=== PATIENT | female | born 1950 | race Caucasian/White ===

== ENCOUNTER 2024-09-24 11:05 | Inpatient (IN) | payer MEDICARE, OTHER ==
[~2024-09-24] VITALS: Ht 157.5 cm; Wt 64.4 kg
[~2024-09-24 11:05] MED LIST: BACI3.5O23 EACHEYE; BALS60OI TP; BISA-79 PO; DEXT1DRO3 OP; ENOX40DI SQ; FURO-145 PO; GLYC-22 RC; LINA145C PO; METH10TA2 PO; MORP100T24 PO; MORP30TA59 PO; POTA20TA83 PO; SENN-18 PO; SIMV10TA2 PO
[2024-09-24 11:57] LABS: BASOPHILS % (AUTO) 0.2 % (0.0-2.0); EOSINOPHILS # (AUTO) 1.9 K/uL (0.0-0.7); HEMATOCRIT 41 % (33-45); LYMPHOCYTES # (AUTO) 1.5 K/uL (0.8-4.8); LYMPHOCYTES % (AUTO) 22.4 % (20.0-44.0); MEAN CORPUSCULAR HEMOGLOBIN 31 PG (26.0-33.0); MEAN CORPUSCULAR HGB CONC 34 g/dl (31.0-36.0); MEAN CORPUSCULAR VOLUME 92 fL (82-100); MONOCYTES # (AUTO) 0.6 K/uL (0.1-1.30); MONOCYTES % (AUTO) 8.7 % (2.0-12.0); NEUTROPHILS # (AUTO) 2.5 K/uL (1.8-8.9); NEUTROPHILS % (AUTO) 38.9 % (43.0-81.0); PLATELET COUNT (AUTO) 246 K/uL (150-450); RED BLOOD CELL COUNT(AUTO) 4.49 MIL/uL (4.0-5.2); WHITE BLOOD COUNT (AUTO) 6.5 K/uL (4.3-11.0)
[2024-09-24 11:58] LABS: EOSINOPHILS % (AUTO) 29.8 % (0.0-6.0)
[2024-09-24 12:01] LABS: CALCIUM, SERUM 8.7 mg/dL (8.5-10.1); CARBON DIOXIDE 25 mmol/L (21-32); CHLORIDE 105 mmol/L (98-107); CREATININE 0.8 mg/dL (0.6-1.3); GLUCOSE 99 mg/dL (74-106); POTASSIUM 4.4 mmol/L (3.5-5.1); SODIUM SERUM 137 mmol/L (136-145); UREA NITROGEN, BLOOD 22 mg/dL (7-18)
[2024-09-24] MEDS ORDERED: PRAM0.258 PO (12:05)
[2024-09-24] MEDS ORDERED: MAGN400O6 PO (12:05)
[2024-09-24] MEDS ORDERED: ACET325T53 PO (12:05)
[2024-09-24] MEDS ORDERED: OXCA150T13 PO (12:05)
[2024-09-24] MEDS ORDERED: ACET-73 PO (12:05)
[2024-09-24] MEDS ORDERED: TRIA80CR12 TP (12:05)
[2024-09-24] MEDS ORDERED: NA P133E RC (12:05)
[2024-09-24] MEDS ORDERED: MORP15TA7 PO (12:05)
[2024-09-24] MEDS ORDERED: NALO4SPR NS (12:05)
[2024-09-24] MEDS ORDERED: MAG-55 PO (12:05)
[2024-09-24] MEDS ORDERED: ERGO500040 PO (12:05)
[2024-09-24] MEDS ORDERED: OXCA300T15 PO (12:05)
[2024-09-24] MEDS ORDERED: QUET25TA PO (12:05)
[2024-09-24 12:09] LABS: ACETAMINOPHEN < 10 ug/ml (10-30); ALANINE AMINOTRANSFERASE 39 U/L (12-78); ALBUMIN 3.1 g/dL (3.4-5.0); ALCOHOL, BLOOD < 3 mg/dL (0-10); ALKALINE PHOSPHATASE 100 U/L (46-116); ASPARTATE AMINOTRANSFERASE 6 U/L (15-37); BILIRUBIN,DIRECT 0.1 mg/dL (0.0-0.2); BILIRUBIN,TOTAL 0.2 mg/dL (0.2-1.0); TOTAL PROTEIN, SERUM 6.6 g/dL (6.4-8.2)
[2024-09-24 12:12] LABS: SALICYLATE 1.5 mg/dL (2.8-20.0)
[2024-09-24 12:39] LABS: EOSINOPHILS % (MANUAL) 21 % (0-4); LYMPHOCYTES % (MANUAL) 29 % (16-48); MONOCYTES % (MANUAL) 5 % (0-11.0); NEUTROPHILS % (MANUAL) 45 (42-76); PLATELET ESTIMATE ADEQUATE
[2024-09-24 13:02] LABS: APPEARANCE,URINE SLIGHTLY CLOUDY (CLEAR); BILIRUBIN,URINE NEGATIVE (NEGATIVE); BLOOD, URINE NEGATIVE Ery/uL (NEGATIVE); COLOR,URINE YELLOW (YELLOW); KETONES,URINE TRACE mg/dL (NEGATIVE); LEUKOCYTE ESTERASE ,URINE TRACE (NEGATIVE); NITRITE, URINE NEGATIVE (NEGATIVE); PH,URINE 5.5 (5.0-8.0); PROTEIN,URINE TRACE mg/dl (NEGATIVE); UGLUCOSE NEGATIVE (NEGATIVE); UROBILINOGEN,URINE 0.2 EU/dL (0.2)
[2024-09-24 13:11] LABS: ADD URINE CULTURE NO; BACTERIA,URINE Rare /HPF (None Seen); CALCIUM OXALATE CRYSTALS,UR Few /HPF (None Seen); RBC,URINE 0-2 /HPF (0-2); SQUAMOUS EPITHELIAL CELL,UR 0-2 /HPF (None Seen); WBC,URINE 0-2 /HPF (0-3)
[2024-09-24] MEDS ORDERED: OFLOXACIN 0.3% OPHTH 5 ML BOTTLE RIGHTEYE SCH (16:30)
[2024-09-24] MEDS ORDERED: ONDANSETRON HCL/PF 4 MG/2 ML VIAL IVP PRN (18:30)
[2024-09-24] MEDS ORDERED: MAG HYDROX/AL HYDROX/SIMETH 30 ML UDC PO PRN (18:30)
[2024-09-24] MEDS ORDERED: Z GUARD REMEDY 4 OZ OINT TP PRN (18:30)
[2024-09-24] MEDS ORDERED: MAGNESIUM HYDROXIDE 30 ML UDC PO PRN (18:30)
[2024-09-24] MEDS ORDERED: BISACODYL (5 MG) 5 MG TABLET.DR PO PRN (18:30)
[2024-09-24 20:00] VITALS: BP 101/73; TEMP 97.3; O2SAT 99
[2024-09-24] MEDS: IV NS 0.9% 1,000 ML IV ONE (20:17)
[2024-09-24] MEDS: OFLOXACIN 0.3% OPHTH 5 ML BOTTLE RIGHTEYE SCH (21:32)
[2024-09-25] MEDS: PANTOPRAZOLE 40 MG TABLET.DR PO SCH (07:30)
[2024-09-25 07:41] LABS: CALCIUM, SERUM 8.5 mg/dL (8.5-10.1); CREATININE 0.6 mg/dL (0.6-1.3); PHOSPHORUS 3.9 mg/dL (2.5-4.9); POTASSIUM 4.3 mmol/L (3.5-5.1)
[2024-09-25 08:00] VITALS: BP 132/76; TEMP 97.5; O2SAT 98
[2024-09-25 08:14] LABS: BASOPHILS % (AUTO) 0.3 % (0.0-2.0); EOSINOPHILS # (AUTO) 2.5 K/uL (0.0-0.7); HEMATOCRIT 40 % (33-45); HEMOGLOBIN 13.8 g/dL (11.5-14.8); LYMPHOCYTES # (AUTO) 1.6 K/uL (0.8-4.8); LYMPHOCYTES % (AUTO) 20.7 % (20.0-44.0); MEAN CORPUSCULAR HEMOGLOBIN 32 PG (26.0-33.0); MEAN CORPUSCULAR HGB CONC 34 g/dl (31.0-36.0); MEAN CORPUSCULAR VOLUME 93 fL (82-100); MONOCYTES # (AUTO) 0.5 K/uL (0.1-1.30); MONOCYTES % (AUTO) 5.9 % (2.0-12.0); NEUTROPHILS # (AUTO) 3.3 K/uL (1.8-8.9); NEUTROPHILS % (AUTO) 41.9 % (43.0-81.0); PLATELET COUNT (AUTO) 242 K/uL (150-450); RED BLOOD CELL COUNT(AUTO) 4.32 MIL/uL (4.0-5.2); RED CELL DISTRIBUTION WIDTH 13.4 % (11.5-15.0); WHITE BLOOD COUNT (AUTO) 7.9 K/uL (4.3-11.0)
[2024-09-25 08:50] LABS: EOSINOPHILS % (AUTO) 31.2 % (0.0-6.0)
[2024-09-25] MEDS: ACETAMINOPHEN 325 MG TABLET PO PRN (12:36)
[2024-09-25] MEDS: DIVALPROEX SODIUM 125 MG TABLET.DR PO SCH (13:22)
[2024-09-25 17:07] LABS: PLATELET ESTIMATE ADEQUATE
[2024-09-25 17:11] LABS: EOSINOPHILS % (MANUAL) 33 % (0-4); LYMPHOCYTES % (MANUAL) 17 % (16-48); MONOCYTES % (MANUAL) 2 % (0-11.0); NEUTROPHILS % (MANUAL) 46 (42-76)
[2024-09-25 20:00] VITALS: BP 118/80; TEMP 97.7; O2SAT 98
[2024-09-25] MEDS: risperiDONE 0.25 MG TABLET PO SCH (20:07)
[2024-09-26] MEDS: OFLOXACIN 0.3% OPHTH 5 ML BOTTLE RIGHTEYE SCH (12:30)
[2024-09-26] MEDS ORDERED: OLANZAPINE 10 MG VIAL IM ONE (17:00)
[2024-09-26] MEDS: PERMETHRIN 5% CRM 60 GM TUBE TP ONE (18:38)
[2024-09-26 20:00] VITALS: BP 122/84; TEMP 97.5; O2SAT 100
[2024-09-27 08:00] VITALS: BP 139/83; TEMP 97.9; O2SAT 96
[2024-09-27] MEDS ORDERED: OFLOXACIN 0.3% OPHTH 5 ML BOTTLE RIGHTEYE SCH (19:30)
[2024-09-27] MEDS ORDERED: DIVA125C5 PO (19:54)
[2024-09-27] MEDS ORDERED: OFLO5DRO6 RIGHTEYE (19:56)
[2024-09-27] MEDS ORDERED: PANT40TA2 PO (19:57)
[2024-09-27] MEDS ORDERED: RISP0.5T65 PO (19:58)
== END 2024-09-27 19:00 | DRG 125 ==
LOC: ER 11:10 → MED 18:15
DX: H10.31 Unspecified acute conjunctivitis, right eye (principal); F01.52 Vascular dementia, unspecified severity, with psychotic disturbance; E44.1 Mild protein-calorie malnutrition; G93.49 Other encephalopathy; F01.53 Vascular dementia, unspecified severity, with mood disturbance; E86.0 Dehydration; Z20.822 Contact with and (suspected) exposure to COVID-19; E78.5 Hyperlipidemia, unspecified; E88.09 Other disorders of plasma-protein metabolism, not elsewhere classified; B86 Scabies; L25.9 Unspecified contact dermatitis, unspecified cause; Z68.26 Body mass index [BMI] 26.0-26.9, adult; Z73.6 Limitation of activities due to disability; F29 Unspecified psychosis not due to a substance or known physiological condition; F39 Unspecified mood [affective] disorder
CPT/HCPCS: 36415; 80048-TC; 80076-TC; 81001; 83735-TC; 84100-TC; 85025-TC; 87081-TC; 97116-TC; 97530-TC; A4223; G0378; G0480; J7030

== ENCOUNTER 2024-09-27 17:19 | Inpatient (IN) | payer MEDICARE, OTHER ==
[~2024-09-27] VITALS: Ht 170.2 cm; Wt 58.1 kg
[~2024-09-27 17:19] MED LIST changes: +ACET-73 PO; +ACET325T53 PO; -BACI3.5O23 EACHEYE; -BALS60OI TP; -DEXT1DRO3 OP; -ENOX40DI SQ; +ERGO500040 PO; -FURO-145 PO; -GLYC-22 RC; -LINA145C PO; +MAG-55 PO; +MAGN400O6 PO; -METH10TA2 PO; -MORP100T24 PO; +MORP15TA7 PO; -MORP30TA59 PO; +NA P133E RC; +NALO4SPR NS; +OXCA150T13 PO; +OXCA300T15 PO; -POTA20TA83 PO; +PRAM0.258 PO; +QUET25TA PO; -SENN-18 PO; -SIMV10TA2 PO; +TRIA80CR12 TP
[2024-09-27] MEDS ORDERED: DIVA125C5 PO (19:54)
[2024-09-27] MEDS ORDERED: OFLO5DRO6 RIGHTEYE (19:56)
[2024-09-27] MEDS ORDERED: PANT40TA2 PO (19:57)
[2024-09-27] MEDS ORDERED: RISP0.5T65 PO (19:58)
[2024-09-27 20:00] VITALS: BP 124/89; TEMP 97.9; O2SAT 97
[2024-09-27] MEDS ORDERED: ZOLPIDEM TARTRATE 5 MG TABLET PO PRN ×2 (20:30)
[2024-09-27] MEDS ORDERED: MAG HYDROX/AL HYDROX/SIMETH 30 ML UDC PO PRN (20:30)
[2024-09-27] MEDS ORDERED: MAGNESIUM HYDROXIDE 30 ML UDC PO PRN (20:30)
[2024-09-27] MEDS: BLOOD SUGAR DIAGNOSTIC 1 EACH STRIP IN ONE (21:00)
[2024-09-28] MEDS: ACETAMINOPHEN 325 MG TABLET PO PRN (00:27)
[2024-09-28] MEDS: HYDROCODONE/APAP 5/325MG TABLET PO PRN (04:57)
[2024-09-28 08:00] VITALS: BP 140/67; TEMP 97.8; O2SAT 98
[2024-09-28 08:37] LABS: BASOPHILS % (AUTO) 0.2 % (0.0-2.0); EOSINOPHILS # (AUTO) 0.7 K/uL (0.0-0.7); EOSINOPHILS % (AUTO) 7.3 % (0.0-6.0); HEMATOCRIT 37 % (33-45); HEMOGLOBIN 12.9 g/dL (11.5-14.8); LYMPHOCYTES # (AUTO) 1.2 K/uL (0.8-4.8); LYMPHOCYTES % (AUTO) 12.5 % (20.0-44.0); MEAN CORPUSCULAR HEMOGLOBIN 32 PG (26.0-33.0); MEAN CORPUSCULAR HGB CONC 35 g/dl (31.0-36.0); MEAN CORPUSCULAR VOLUME 93 fL (82-100); MONOCYTES # (AUTO) 0.9 K/uL (0.1-1.30); NEUTROPHILS # (AUTO) 6.8 K/uL (1.8-8.9); PLATELET COUNT (AUTO) 256 K/uL (150-450); RED BLOOD CELL COUNT(AUTO) 4.01 MIL/uL (4.0-5.2); RED CELL DISTRIBUTION WIDTH 13.2 % (11.5-15.0); WHITE BLOOD COUNT (AUTO) 9.6 K/uL (4.3-11.0)
[2024-09-28 08:54] LABS: CALCIUM, SERUM 8.4 mg/dL (8.5-10.1); CREATININE 0.7 mg/dL (0.6-1.3); POTASSIUM 3.9 mmol/L (3.5-5.1)
[2024-09-28] MEDS ORDERED: LORAZEPAM 1 MG TABLET PO PRN (12:30)
[2024-09-28] MEDS: DIVALPROEX SODIUM 125 MG CAP.SPRINK PO SCH (13:46)
[2024-09-28] MEDS: risperiDONE 1 MG TABLET PO SCH (13:46)
[2024-09-28 16:00] VITALS: BP 133/95; TEMP 97.8; O2SAT 98
[2024-09-28] MEDS ORDERED: NA PHOS,M-B/NA PHOS,DI-BA 1 EA ENEMA RC PRN (18:00)
[2024-09-28] MEDS ORDERED: MAG HYDROX/AL HYDROX/SIMETH 30 ML UDC PO PRN (18:00)
[2024-09-28] MEDS ORDERED: BISACODYL (5 MG) 5 MG TABLET.DR PO PRN (18:00)
[2024-09-28] MEDS ORDERED: NALOXONE HCL 4 MG SPRAY NS PRN (18:00)
[2024-09-28] MEDS ORDERED: MAGNESIUM HYDROXIDE 30 ML UDC PO PRN (18:00)
[2024-09-28] MEDS: OFLOXACIN 0.3% OPHTH 5 ML BOTTLE RIGHTEYE SCH (19:00)
[2024-09-28 21:17] VITALS: BP 124/81; TEMP 98.2; O2SAT 98
[2024-09-28] MEDS: MORPHINE SULFATE SR 15 MG TABLET.SA PO SCH (21:39)
[2024-09-29 08:00] VITALS: BP 124/82; TEMP 97.6; O2SAT 98
[2024-09-29] MEDS: PANTOPRAZOLE 40 MG TABLET.DR PO SCH (08:20)
[2024-09-29] MEDS: TRIAMCINOLONE ACETONIDE 0.1% CR 15 GM TUBE TP SCH (08:21)
[2024-09-29] MEDS ORDERED: DIVALPROEX SODIUM 125 MG CAP.SPRINK PO SCH (09:00)
[2024-09-29 16:00] VITALS: BP 128/84; TEMP 97.8; O2SAT 96
[2024-09-29 20:20] VITALS: BP 107/67; TEMP 97.5; O2SAT 95
[2024-09-30 08:00] VITALS: BP 113/67; TEMP 98.4; O2SAT 100
[2024-09-30 15:40] VITALS: BP 115/73; TEMP 98; O2SAT 98
[2024-09-30 20:00] VITALS: BP 116/71; TEMP 98; O2SAT 100
[2024-10-01 07:42] LABS: ALBUMIN 2.8 g/dL (3.4-5.0); BILIRUBIN,TOTAL 0.2 mg/dL (0.2-1.0); CALCIUM, SERUM 8.5 mg/dL (8.5-10.1); CREATININE 0.7 mg/dL (0.6-1.3); POTASSIUM 4.1 mmol/L (3.5-5.1); TOTAL PROTEIN, SERUM 6.9 g/dL (6.4-8.2)
[2024-10-01 08:00] VITALS: BP 95/56; TEMP 97.8; O2SAT 100
[2024-10-01] MEDS: risperiDONE 1 MG TABLET PO SCH (08:34)
[2024-10-01 16:00] VITALS: BP 112/62; TEMP 98; O2SAT 94
[2024-10-01] MEDS: DIVALPROEX SODIUM 125 MG CAP.SPRINK PO SCH (16:23)
[2024-10-01 20:20] VITALS: BP 109/64; TEMP 98.5; O2SAT 95
[2024-10-02 08:00] VITALS: BP 118/74; TEMP 97.7; O2SAT 97
[2024-10-02 16:35] VITALS: BP 122/75; TEMP 98.6; O2SAT 98
[2024-10-02 20:00] VITALS: BP 92/66; TEMP 98.3; O2SAT 100
[2024-10-03 08:00] VITALS: BP 100/64; TEMP 97.5; O2SAT 97
[2024-10-03 16:00] VITALS: BP 111/72; TEMP 98.6; O2SAT 98
[2024-10-03 20:00] VITALS: BP 115/72; TEMP 97.5; O2SAT 100
[2024-10-04 08:00] VITALS: BP 115/73; TEMP 97.8; O2SAT 98
[2024-10-04 16:00] VITALS: BP 167/64; TEMP 97.9; O2SAT 98
[2024-10-04 20:12] VITALS: BP 101/58; TEMP 98; O2SAT 98
[2024-10-05 08:00] VITALS: BP 100/60; TEMP 97.7; O2SAT 94
[2024-10-05 16:00] VITALS: BP 115/79; TEMP 98; O2SAT 96
[2024-10-05 20:25] VITALS: BP 107/59; TEMP 98.3; O2SAT 97
[2024-10-06 08:00] VITALS: BP 108/67; TEMP 97.7; O2SAT 96
[2024-10-06 16:11] VITALS: BP 110/82; TEMP 98; O2SAT 97
[2024-10-06 23:07] VITALS: BP 106/75; TEMP 98; O2SAT 95
[2024-10-07 08:00] VITALS: BP 99/73; TEMP 97.8; O2SAT 97
[2024-10-07] MEDS: DIVALPROEX SODIUM 125 MG CAP.SPRINK PO SCH (12:20)
[2024-10-07 15:22] VITALS: BP 116/65; TEMP 97.7; O2SAT 97
[2024-10-07 20:20] VITALS: BP 104/59; TEMP 98.5; O2SAT 97
[2024-10-08 08:00] VITALS: BP 95/62; TEMP 97.5; O2SAT 98
[2024-10-08 16:00] VITALS: BP 121/68; TEMP 98.7; O2SAT 98
[2024-10-08 20:05] VITALS: BP 93/65; TEMP 98.5; O2SAT 96
[2024-10-08] MEDS: risperiDONE 1 MG TABLET PO SCH (20:54)
[2024-10-09 08:00] VITALS: BP 100/60; TEMP 97.8; O2SAT 98
[2024-10-09 16:00] VITALS: BP 116/77; TEMP 98.7; O2SAT 97
[2024-10-09 20:04] VITALS: BP 104/67; TEMP 97.5; O2SAT 95
[2024-10-10 08:00] VITALS: BP 90/50; TEMP 98.7; O2SAT 94
[2024-10-10 16:00] VITALS: BP 102/72; TEMP 97.5; O2SAT 96
[2024-10-10 20:00] VITALS: BP 116/75; TEMP 98.6; O2SAT 97
[2024-10-11 08:00] VITALS: BP 115/78; TEMP 97.7; O2SAT 98
== END 2024-10-11 11:40 | DRG 885 ==
LOC: GPS 19:13
PROVIDERS: ADMIT Psychiatry & Neurology Psychiatry
DX: F29 Unspecified psychosis not due to a substance or known physiological condition (principal); G93.41 Metabolic encephalopathy; E44.1 Mild protein-calorie malnutrition; F01.53 Vascular dementia, unspecified severity, with mood disturbance; F01.511 Vascular dementia, unspecified severity, with agitation; E86.0 Dehydration; H10.9 Unspecified conjunctivitis; E88.09 Other disorders of plasma-protein metabolism, not elsewhere classified; L25.9 Unspecified contact dermatitis, unspecified cause; Z86.19 Personal history of other infectious and parasitic diseases; E78.5 Hyperlipidemia, unspecified; K58.9 Irritable bowel syndrome, unspecified; Z79.899 Other long term (current) drug therapy; G47.00 Insomnia, unspecified; R79.89 Other specified abnormal findings of blood chemistry
CPT/HCPCS: 36415; 80048-TC; 80053-TC; 80061-TC; 80164-TC; 82962-TC; 85025-TC; 97110-TC; 97116-TC; 97530-TC; J7050